=== PATIENT | male | born 1955 | race Caucasian/White ===

== ENCOUNTER 2021-03-24 08:12 | Outpatient (CLI) | payer MEDICARE, SELFPAY ==
--- NOTE | ~2021-03-24 | XR_ITS ---
EXAMINATION: XR barium swallow modified DATE: 03/24/2021 09:30 INDICATION: Dysphagia, unspecified TECHNIQUE: Modified barium esophagram was performed by myself to administered fluoroscopy, in conjun ction with speech pathologist who administered barium in varying consistencies as per speech patholog ist documentation. This was recorded on tape. A single fluoroscopic spot image was recorded. The DAP for this procedure was 1.973 Gycm2. Fluoroscopy exposure time was 2.0 minutes. FINDINGS: Oral stage: Adequate function. Pharyngeal phase: Adequate function. Laryngeal penetration: None. Aspiration: None. Laryngeal sensitivity: Present. IMPRESSION: Unremarkable modified barium swallow. Please refer to speech pathologist findings and spe [facility] feeding recommendations. Reviewed, dictated and finalized at location A. 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 Please refer to speech pathol ogist findings and specific feeding recommendations.
--- NOTE | 2021-03-24 16:13 | STOPEVAL ---
MODIFIED BARIUM SWALLOW EVALUATION: Thank you for referring Alexei Dejesus to [facility].? Attending Provider: STEFFANIE Saldana Modified Barium Swallow Evaluation Recent Swallowing History Reports Dysphagia Yes: meat gets stuck Onset of Dysphagia approximately 2 weeks History of Dysphagia No History of Pneumonia No Reported Difficult Consistencies Solids Intake Method Prior to Swallow Oral Evaluation Liquid Consistency Prior to Swallow Thin (0) Evaluation Consistency Solid Consistency Method of Presentation Spoon Oral Preparatory Symptoms None Oral Phase Symptoms None Pharyngeal Phase Symptoms None Severity of Vallecular Residue None - 0% No Residue Severity of Pyriform Sinus Residue None - 0% No Residue 8 Point Laryngeal Penetration-Aspiration Material Does Not Enter Airway Scale Cervical/Esophageal Symptoms None Mixed Consistency Method of Presentation Spoon Oral Preparatory Symptoms None Oral Phase Symptoms None Pharyngeal Phase Symptoms None Severity of Vallecular Residue None - 0% No Residue Severity of Pyriform Sinus Residue None - 0% No Residue 8 Point Laryngeal Penetration-Aspiration Material Does Not Enter Airway Scale Cervical/Esophageal Symptoms None Pureed Consistency Method of Presentation Spoon Oral Preparatory Symptoms None Oral Phase Symptoms None Pharyngeal Phase Symptoms None Severity of Vallecular Residue None - 0% No Residue Severity of Pyriform Sinus Residue None - 0% No Residue 8 Point Laryngeal Penetration-Aspiration Material Does Not Enter Airway Scale Cervical/Esophageal Symptoms None Thin Uncontrolled 2 Method of Presentation Straw Oral Preparatory Symptoms None Oral Phase Symptoms None Pharyngeal Phase Symptoms None Severity of Vallecular Residue None - 0% No Residue Severity of Pyriform Sinus Residue None - 0% No Residue 8 Point Laryngeal Penetration-Aspiration Material Does Not Enter Airway Scale Cervical/Esophageal Symptoms None Thin Uncontrolled 1 Method of Presentation Cup Oral Preparatory Symptoms None Oral Phase Symptoms None Pharyngeal Phase Symptoms None Severity of Vallecular Residue None - 0% No Residue Severity of Pyriform Sinus Residue None - 0% No Residue 8 Point Laryngeal Penetration-Aspiration Material Does Not Enter Airway Scale Cervical/Esophageal Symptoms None Thin 5 mL Method of Presentation Spoon Oral Preparatory Symptoms None Oral Phase Symptoms None Pharyngeal Phase Symptoms None Severity of Vallecular Residue None - 0% No Residue Severity of Pyriform Sinus Residue
== END 2021-03-24 08:13 | disposition home or self-care (01) ==
PROVIDERS: PCP Family Medicine; Visit Provider Nurse Practitioner Family
DX: R13.10 Dysphagia, unspecified (principal)
CPT/HCPCS: 92611

== ENCOUNTER 2022-11-13 15:25 | Outpatient (CLI) | payer MEDICARE, SELFPAY ==
--- NOTE | ~2022-11-13 | MR_ITS ---
EXAMINATION: MR abdomen wo/w con DATE: 11/13/2022 16:19 INDICATION: Liver disease, unspecified. TECHNIQUE: Magnetic resonance imaging (MRI) of the abdomen was performed without and with 19 mL Multi Willie intravenous contrast. COMPARISON: CT abdomen and pelvis 09/26/2018 FINDINGS: There is a pericardial cyst on the right measuring 2.8 x 1.6 cm. There are cysts in the liver measuri ng up to 2.7 cm. The spleen, pancreas, and adrenal glands are normal. The gallbladder is absent. Ther e are cysts in the kidneys measuring up to 11 mm on the left. There are no dilated loops of bowel. Th ere are no pathologically enlarged lymph nodes. There is no free intraperitoneal fluid. There is a 3. 0 cm fusiform aneurysm of infrarenal aorta. IMPRESSION: 1. Benign cysts in the liver. 2. 3.0 cm fusiform aneurysm of infrarenal aorta. Reviewed, dictated and finalized at location A.
== END 2022-11-13 15:26 | disposition home or self-care (01) ==
PROVIDERS: PCP Family Medicine; Visit Provider Physician Assistant Medical
DX: K76.9 Liver disease, unspecified (principal); K76.89 Other specified diseases of liver; I71.43 Infrarenal abdominal aortic aneurysm, without rupture
CPT/HCPCS: 74183; A9577

== ENCOUNTER 2022-12-11 09:17 | Outpatient (CLI) | payer MEDICARE, SELFPAY ==
--- NOTE | ~2022-12-11 | CT_ITS ---
CT Scan of the Chest without Contrast: Clinical Indication: Abnormal finding of lung field Technique: Contiguous sections were acquired throughout the chest without intravenous contrast. Dose reduction technique was used on this scan by utilizing automated exposure control and iterative recon struction technique. The dose-length product (DLP) was 387.99 mGy-cm. COMPARISON: 05/13/2010 Findings: There is no evidence of any significant mediastinal, hilar or axillary lymphadenopathy. Coronary robinson ry calcifications are present. There is no evidence of pleural or pericardial effusion. The lungs are clear. No pulmonary nodules or infiltrates are noted. Moderate emphysema noted. Images through the upper abdomen reveal hepatic cysts. Impression: Moderate emphysema. Reviewed, dictated and finalized at location . Impression: Moderate emphysema.
== END 2022-12-11 09:18 | disposition home or self-care (01) ==
PROVIDERS: Visit Provider Internal Medicine Pulmonary Disease
DX: R91.8 Other nonspecific abnormal finding of lung field (principal); J43.9 Emphysema, unspecified
CPT/HCPCS: 71250

== ENCOUNTER 2023-04-03 08:25 | Outpatient (CLI) | payer MEDICARE, SELFPAY ==
--- NOTE | 2023-04-03 11:00 | NEURO_ITS ---
Impression: # Complains of numbness of feet. History of cervical surgery over 10 years ago. # Sensory neuropathy. # Needle/EMG exam mildly neurogenic. # Clinical correlation recommended. Nerve Conduction Studies Anti Sensory Summary Table Stim Site NR Peak (ms) P-T Amp (?V) Site1 Site2 Delta-P (ms) Dist (cm) Irving (m/s) Left Saphenous Anti Sensory (Ant Med Mall) NO RESPONSE 14cm NR 14cm Ant Med Mall 0.0 Right Saphenous Anti Sensory (Ant Med Mall) NO RESPONSE 14cm NR 14cm Ant Med Mall 0.0 Left Sup Fibular Anti Sensory (Ant Lat Mall) NO RESPONSE 14 cm NR 14 cm Ant Lat Mall 16.0 Right Sup Fibular Anti Sensory (Ant Lat Mall) NO RESPONSE 14 cm NR 14 cm Ant Lat Mall 16.0 Left Sural Anti Sensory (Lat Mall) NO RESPONSE Calf NR Calf Lat Mall 16.0 Right Sural Anti Sensory (Lat Mall) NO RESPONSE Calf NR Calf Lat Mall 16.0 Motor Summary Table Stim Site NR Onset (ms) O-P Amp (mV) Site1 Site2 Delta-0 (ms) Dist (cm) Irving (m/s) Left Peroneal Motor (Vastus Med) Ankle 4.3 2.1 Popit Ankle 9.5 40.0 42 Popit 13.8 0.7 Right Peroneal Motor (Vastus Med) Ankle 4.6 2.0 Popit Ankle 7.4 37.0 50 Popit 12.0 2.2 Left Tibial Motor (Abd Xie Brev) Ankle 4.5 3.5 Knee Ankle 9.0 40.0 44 Knee 13.5 2.1 Right Tibial Motor (Abd Xie Brev) Ankle 4.9 6.2 Knee Ankle 9.5 40.0 42 Knee 14.4 5.8 F Wave Studies NR F-Lat (ms) L-R F-Lat (ms) Left Peroneal (Mrkrs) (EDB) 55.25 0.95 Right Peroneal (Mrkrs) (EDB) 54.30 0.95 Left Tibial (Mrkrs) (Abd Hallucis) 53.36 0.23 Right Tibial (Mrkrs) (Abd Hallucis) 53.59 0.23 EMG Side Muscle Nerve Root Ins Act Fibs Amp Dur Recrt Comment Right AntTibialis Dp Br Fibular L4-5 Nml Nml Nml >12ms Nml Right Gastroc Tibial S1-2 Nml Nml Nml >12ms Nml Right Fibularis Long Sup Br Fibular L5-S1 Nml Nml Nml >12ms Nml Right Flex Dig Long Tibial L5-S2 Nml Nml Nml >12ms Nml Right Ext Dig Brev Dp Br Fibular L5, S1 Nml Nml Nml >12ms Nml Left AntTibialis Dp Br Fibular L4-5 Nml Nml Nml >12ms Nml Left Gastroc Tibial S1-2 Nml Nml Nml >12ms Nml Left Fibularis Long Sup Br Fibular L5-S1 Nml Nml Nml >12ms Nml Left Flex Dig Long Tibial L5-S2 Nml Nml Nml >12ms Nml Left Ext Dig Brev Dp Br Fibular L5, S1 Nml Nml Nml >12ms Nml MTDD
== END 2023-04-03 08:26 | disposition home or self-care (01) ==
LOC: ANHNEURO 08:26
PROVIDERS: PCP Family Medicine; Visit Provider Family Medicine
DX: R20.0 Anesthesia of skin (principal)
CPT/HCPCS: 95886; 95911

== ENCOUNTER 2023-08-10 08:33 | Outpatient (CLI) | payer MEDICARE, SELFPAY ==
--- NOTE | 2023-08-21 15:16 | WPDSLEEPSTUD ---
Sleep Study Date of Study: 08/10/23 Ordering Provider: Blake OntiverosMD Interpreting Physician: Harleen Angeles, Sleep Study Type: CPAP Titration Height: 1.7 m Weight: 97.522 kg Body Mass Index: 33.6 Neck Circumference (inches): 18 [place]: 11 Reason for Sleep Study Compliance data shows AHI of 22.5 on BPAP 13/8 cm H2O. Sleep History The patient is a 67-year-old male with hypertension, COPD coronary artery disease with stents, complex sleep apnea, pulmonary nodules and history of tobacco use that had a sleep study ordered by his software publisher to determine optimal PAP settings. the patient denies awakening from sleep short of breath. He denies awakening at night with heartburn, belching or cough. He rarely snores loud enough that others complain. He denies having trouble sleeping when he has a cold. He denies waking up gasping for air throughout the night. He occasionally has breathing problems at night observed by himself or others. He denies sweating excessively at night. He denies having heart palpitations or irregular heartbeats during the night. He occasionally falls asleep during the day but never while driving. He denies sleep paralysis, cataplexy and hypnagogic / hypnopompic hallucinations. He denies having trouble at school or work due to sleepiness. He denies feeling afraid of going to sleep. He denies having nightmares. He frequently remembers his dreams. He occasionally has thoughts racing through his mind. He denies feeling sad or depressed. He rarely has anxiety. He denies having muscular tension. He rarely notices parts of his body jerk. He denies kicking during the night. He denies having crawling and aching feelings in his legs and denies having leg pain during the night. He rarely grinds his teeth during sleep but never awakens with morning jaw pain. He denies being bothered by pain during the day and denies being awakened by pain during the night. He occasionally wakes up feeling stiff in morning. He rarely wakes up with sore or achy muscles. He rarely wakes up with pain due to bone in the region weights. He goes to bed at 11:00 p.m. on both weekdays and weekends. It takes him 10 15 minutes to fall asleep. He wakes up 2-3 times throughout the night to urinate and get a drink and is able to fall back asleep within 15 minutes. He wakes up at 8:00 a.m. on both weekdays and weekends. He typically gets 9-10 hours of sleep per night. He will stay in bed for 30 minutes after waking up in the morning. He currently lives with his . He denies consuming any caffeinated beverages within 2 hours of bedtime. He denies engaging in physical exercise before bedtime. He will watch television before falling asleep. He will take naps in the afternoon or evening and they are refreshing. He consumes 2 caffeinated beverages per day. He quit smoking cigarettes 12 years ago. He denies alcohol and recreational drug use. [facility] Past Medical History Medical History BMI 32.0-32.9,adult BMI 34.0-34.9,adult BMI greater than 30 Surgical History Surgical History History of cholecystectomy Family History Family History Grandparent Carcinoma of colon Father Family history of coronary artery disease Family history of malignant neoplasm Family history of Alzheimer's disease Mother Family history of congestive heart failure Heart disease Sibling Heart disease Hypertension Other Family history of cardiovascular disease Social History Social History Smoking status: Former smoker Second hand tobacco smoke exposure: No Smoking end date: 08/14/13 Alcohol intake: current Substance use: never Substance use type: does not use Lack of
[2023-08-21 15:23] VITALS: BMI 33.6
== END 2023-08-11 06:55 | disposition home or self-care (01) ==
PROVIDERS: PCP Family Medicine; Visit Provider Internal Medicine Pulmonary Disease
DX: G47.37 Central sleep apnea in conditions classified elsewhere (principal); G47.33 Obstructive sleep apnea (adult) (pediatric); G47.61 Periodic limb movement disorder
CPT/HCPCS: 95811

== ENCOUNTER 2024-02-18 02:03 | Day surgery (SDC) | payer MEDICARE, SELFPAY ==
[2024-02-08 15:42] VITALS: BMI 33.7
--- NOTE | 2024-02-12 16:13 | PC.NURSE ---
Spoke with _patient_ regarding medication _PLAVIX_. Pt. verbalizes understanding that the last dose of _PLAVIX_ is to be taken on _02/10/2024___ and the Endoscopist will instruct them when to restart after the procedure.
[2024-02-18 06:15] VITALS: BP 94/65; PULSE 57; RESP 16; TEMP 36.1; O2SAT 94; BMI 32.7
[2024-02-18] MEDS: LACTATED RINGERS 1,000 ML 150 ML IV CONT (06:38)
--- NOTE | 2024-02-18 06:55 | P.PNAN_ITS ---
Anes - Initial Pre Proc Eval Procedure: Operation Date: 02/18/24 07:30 Proposed Procedures p Colonoscopy - Jose Dewitt MD Date/Time: 02/18/24 06:55 Surgeon: Jose Dewitt MD Pre Op Diagnosis: personal hx colon polyps Patient Data Age: 68 Gender: M Height: 1.7 m Weight: 94.8 kg Last Vital Signs Temp 36.1 C L 02/18/24 06:15 Pulse 57 L 02/18/24 06:15 Resp 16 02/18/24 06:15 BP 94/65 L 02/18/24 06:15 Pulse Ox 94 02/18/24 06:15 O2 Del Method Room Air 02/18/24 06:15 Allergies Allergy/AdvReac Type Severity Reaction Status Date / Time amlodipine Allergy Severe Anaphylaxis Verified 02/18/24 06:22 atorvastatin AdvReac Intermediate Muscle Verified 02/18/24 06:22 Spasms colesevelam AdvReac Intermediate Cramping Verified 02/18/24 06:22 of the Muscles RED MEAT/PORK Allergy Severe Anaphylaxis Uncoded 02/18/24 06:22 Home Medications Medication Instructions Recorded Confirmed Type aspirin 81 mg tablet,delayed 81 mg PO DAILY 03/17/19 02/18/24 History release (Adult Low Dose Aspirin) ferrous sulfate 325 mg (65 mg 325 mg PO TID #90 tabs 09/01/19 02/18/24 Rx iron) tablet clopidogrel 75 mg tablet (Plavix) 75 mg PO DAILY #1 tablet 07/07/21 02/18/24 Rx famotidine 20 mg tablet 20 mg PO BID 02/22/23 02/18/24 History hydrochlorothiazide 12.5 mg tablet 12.5 mg PO DAILY #90 tabs 10/08/23 02/18/24 Rx pantoprazole 20 mg tablet,delayed 20 mg PO QAM #90 tabs 11/26/23 02/18/24 Rx release (Protonix) De3 [place] 7,200 mg PO QPM 02/08/24 02/18/24 History atorvastatin 80 mg tablet 80 mg PO HS 02/08/24 02/18/24 History carvedilol 6.25 mg tablet 12.5 mg PO Q12H 02/08/24 02/18/24 History cetirizine 10 mg tablet 10 mg PO BID 02/08/24 02/18/24 History Patient hx anesthesia problems: none Family hx anesthesia problems: none Results Review: All pre-operative results and documents have been reviewed as part of the pre- operative evaluation. [facility] Past Medical History Medical History (Updated 02/18/24 @ 06:56 by Kj Lewis MD) BMI 32.0-32.9,adult BMI 33.0-33.9,adult BMI 34.0-34.9,adult BMI greater than 30 CAD (coronary artery disease) Ex-smoker MICHI on CPAP Surgical History Surgical History (Updated 02/18/24 @ 06:56 by Kj Lewis MD) H/O cervical spine surgery History of cholecystectomy History of coronary artery stent placement Family History Family History Grandparent Carcinoma of colon Father Family history of coronary artery disease Family history of malignant neoplasm Family history of Alzheimer's disease Mother Family history of congestive heart failure Heart disease Sibling Heart disease Hypertension Other Family history of cardiovascular disease Social History Social History Smoking packs per day: 1.5 Smoking cigarettes per day: 30.0 Years smoked: 43 Smoking pack-years: 64.50 Smoking status: Former smoker Tobacco type: cigarettes Second hand tobacco smoke exposure: No Smoking end date: 08/14/13 Alcohol intake: current Drinks per week: 3 Alcohol use details: BEERS Substance use: never Substance use type: does not use Lack of Transportation: No Lack of Food: Never True Current Housing: I Have Housing Concerned About Future Housing: No Difficulty Paying Gas/Electric Bills: No Difficulty Paying for Meds: No Currently Unemployed: No Education: High School Diploma/GED Difficulty w/ Childcare or Family Care: No Living arrangements: with family Occupation/Education: retired 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 Gender identity (if verbalized by the patient): Male Sexual Orientation (if Verbalized by the Patient): Straight or Heterosexual Spiritual care concerns: No Anes - Eval Final PreProcedure Day of Procedure 02/18/24 06:55 Patient weight: obese Heart: regular rate and rhythm Lungs: clear to auscultation Airway: Mallampati scale class II Neurological: alert and oriented Last oral intake: >/= 8 hours ASA classification: III Emergent: no Anesthetic plan: proceed Anesthesia type and monitoring: general GIVS and standard monitoring Results Review: All pre-operative results and documents have been reviewed as part of the pre- operative evaluation. Informed Consent: The patient's anesthetic plan and its attendant risks and benefits were discussed with the patient/family/POA. Questions were solicited and answers provided to the satisfaction of the patient/family/POA.
--- NOTE | 2024-02-18 07:34 | P.HP_ITS ---
H&P: HPI History of Present Illness Date/Time: 02/18/24 07:34 Chief Complaint: History of colonic polyps. Narrative: The patient has a history of colonic polyps, the last colonoscopy was In 2018. [facility] Past Medical History Medical History (Updated 02/18/24 @ 06:56 by Kj Lewis MD) BMI 32.0-32.9,adult BMI 33.0-33.9,adult BMI 34.0-34.9,adult BMI greater than 30 CAD (coronary artery disease) Ex-smoker MICHI on CPAP Surgical History Surgical History (Updated 02/18/24 @ 06:56 by Kj Lewis MD) H/O cervical spine surgery History of cholecystectomy History of coronary artery stent placement Family History Family History Grandparent Carcinoma of colon Father Family history of coronary artery disease Family history of malignant neoplasm Family history of Alzheimer's disease Mother Family history of congestive heart failure Heart disease Sibling Heart disease Hypertension Other Family history of cardiovascular disease Social History Social History Smoking packs per day: 1.5 Smoking cigarettes per day: 30.0 Years smoked: 43 Smoking pack-years: 64.50 Smoking status: Former smoker Tobacco type: cigarettes Second hand tobacco smoke exposure: No Smoking end date: 08/14/13 Alcohol intake: current Drinks per week: 3 Alcohol use details: BEERS Substance use: never Substance use type: does not use Lack of Transportation: No Lack of Food: Never True Current Housing: I Have Housing Concerned About Future Housing: No Difficulty Paying Gas/Electric Bills: No Difficulty Paying for Meds: No Currently Unemployed: No Education: High School Diploma/GED Difficulty w/ Childcare or Family Care: No Living arrangements: with family Occupation/Education: retired 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 Gender identity (if verbalized by the patient): Male Sexual Orientation (if Verbalized by the Patient): Straight or Heterosexual Spiritual care concerns: No Meds Home Medications and Allergies Home Medications Medication Instructions Recorded Confirmed Type aspirin 81 mg tablet,delayed 81 mg PO DAILY 03/17/19 02/18/24 History release (Adult Low Dose Aspirin) ferrous sulfate 325 mg (65 mg 325 mg PO TID #90 tabs 09/01/19 02/18/24 Rx iron) tablet clopidogrel 75 mg tablet (Plavix) 75 mg PO DAILY #1 tablet 07/07/21 02/18/24 Rx famotidine 20 mg tablet 20 mg PO BID 02/22/23 02/18/24 History hydrochlorothiazide 12.5 mg tablet 12.5 mg PO DAILY #90 tabs 10/08/23 02/18/24 Rx pantoprazole 20 mg tablet,delayed 20 mg PO QAM #90 tabs 11/26/23 02/18/24 Rx release (Protonix) De3 [place] 7,200 mg PO QPM 02/08/24 02/18/24 History atorvastatin 80 mg tablet 80 mg PO HS 02/08/24 02/18/24 History carvedilol 6.25 mg tablet 12.5 mg PO Q12H 02/08/24 02/18/24 History cetirizine 10 mg tablet 10 mg PO BID 02/08/24 02/18/24 History Allergies Allergy/AdvReac Type Severity Reaction Status Date / Time amlodipine Allergy Severe Anaphylaxis Verified 02/18/24 06:22 atorvastatin AdvReac Intermediate Muscle Verified 02/18/24 06:22 Spasms colesevelam AdvReac Intermediate Cramping Verified 02/18/24 06:22 of the Muscles RED MEAT/PORK Allergy Severe Anaphylaxis Uncoded 02/18/24 06:22 Vital Signs Vital Signs - 24 hr 02/18/24 06:15 Temperature 97.0 F L Pulse Rate 57 L Respiratory Rate 16 Blood Pressure 94/65 L Pulse Oximetry 94 Oxygen Delivery Room Air Assessment and Plan Assessment and plan (1) Screen for colon cancer: Code(s): Z12.11 - Encounter for screening for malignant neoplasm of colon Status: Acute Assessment and Plan: The patient is deemed a good candidate for the procedure. Consent signed. Will proceed.
[2024-02-18 08:01] VITALS: BP 104/63; PULSE 48; RESP 12; O2SAT 93
[2024-02-18 08:11] VITALS: BP 109/60; PULSE 61; RESP 20; O2SAT 93
[2024-02-18 08:21] VITALS: BP 102/62; PULSE 54; RESP 16; O2SAT 95
== END 2024-02-18 08:32 | disposition home or self-care (01) ==
PROVIDERS: PCP Family Medicine; Referring Provider Nurse Practitioner Family; Visit Provider Internal Medicine Gastroenterology
PROC: 0DJD8ZZ Inspection of Lower Intestinal Tract, Via Natural or Artificial Opening Endoscopic (ICD-10-PCS; CPT 45378; principal; 2024-02-18 07:30)
DX: Z12.11 Encounter for screening for malignant neoplasm of colon (principal); K64.8 Other hemorrhoids; K57.30 Diverticulosis of large intestine without perforation or abscess without bleeding; I25.10 Atherosclerotic heart disease of native coronary artery without angina pectoris; G47.33 Obstructive sleep apnea (adult) (pediatric); E66.9 Obesity, unspecified; Z68.32 Body mass index [BMI] 32.0-32.9, adult; Z79.82 Long term (current) use of aspirin; Z79.02 Long term (current) use of antithrombotics/antiplatelets; Z99.89 Dependence on other enabling machines and devices; Z98.890 Other specified postprocedural states; Z90.49 Acquired absence of other specified parts of digestive tract; Z98.1 Arthrodesis status; Z95.5 Presence of coronary angioplasty implant and graft; Z87.891 Personal history of nicotine dependence; Z86.0100 Personal history of colon polyps, unspecified; Z86.79 Personal history of other diseases of the circulatory system; Z80.0 Family history of malignant neoplasm of digestive organs; Z82.49 Family history of ischemic heart disease and other diseases of the circulatory system
CPT/HCPCS: G0105; J2003; J2704; J7120

== ENCOUNTER 2024-09-25 09:33 | Outpatient (CLI) | payer MEDICARE, SELFPAY ==
--- OUTSIDE RECORDS SUMMARY | 2024-09-25 10:35 | XMS_ITS | Encounter Summary ---
Author Organization [facility] Address [address] [place] [address] Care Team Providers Care Sports Teacher Name Role Phone Shaun Myers MD Primary Care Provider + [phone] Shaun Myers MD Primary Care Provider + [phone] Shaun Myers MD Primary Care Provider + [phone] Hugh Mosquera MD Unavailable [phone] Encounter Details Date Type Department Care Team (Late st Contact Info) Description 05/08/2016 Orders Only [facility] ProviderDar MD [address] [place] [id number] Social History Tobacco Use Types Packs/Day Years Used Date Smoking Tobacco: Former Alcohol Use Standard Drinks/Week Comments Yes 0 (1 standard drink = 0.6 oz pur e alcohol) Sex and Gender Information Value Date Recorded Sex Assigned at Not on file Legal Sex Male 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 Historical Provider [facility] Final Result documented in this encounter Visit Diagnoses Not on filedocumented in this encounter Care Teams Sports Teacher Relationship Specialty Start Date End Date Shaun Myers MD PCP - General 07/14/16 Shaun Myers MD PCP - General 05/16/16 07/13/16 Shaun Myers MD PCP - General 11/05/15 05/15/16 Hugh Mosquera MD [address] [place] [address] Consulting Physician Rheumatology 01/19/23 documented as of this encounter
--- OUTSIDE RECORDS SUMMARY | 2024-09-25 10:35 | XMS_ITS | Encounter Summary ---
Author Organization [facility] Address [address] [place] [address] Care Team Providers Care Lead Shop Operator Name Role Phone Shaun Myers MD Primary Care Provider + [phone] Shaun Myers MD Primary Care Provider + [phone] Shaun Myers MD Primary Care Provider + [phone] Hugh Mosquera MD Unavailable [phone] Encounter Details Date Type Department Care Team (Late st Contact Info) Description 05/15/2016 Orders Only [facility] ProviderDar MD [address] [place] [id number] Social History Tobacco Use Types Packs/Day Years Used Date Smoking Tobacco: Former Alcohol Use Standard Drinks/Week Comments Yes 0 (1 standard drink = 0.6 oz pur e alcohol) Sex and Gender Information Value Date Recorded Sex Assigned at Not on file 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 Historical Provider [facility] Final Result documented in this encounter Visit Diagnoses Not on filedocumented in this encounter Care Teams Lead Shop Operator Relationship Specialty Start Date End Date Shaun Myers MD PCP - General 07/14/16 Shaun Myers MD PCP - General 05/16/16 07/13/16 Shaun Myers MD PCP - General 11/05/15 05/15/16 Hugh Mosquera MD [address] [place] [address] Consulting Physician Rheumatology 01/19/23 documented as of this encounter
--- OUTSIDE RECORDS SUMMARY | 2024-09-25 10:35 | XMS_ITS | Clinical Summary ---
Author Organization [facility] Address [address] [address] Care Team Providers Care Wick Tender Name Role Phone Shaun Myers MD Primary Care Provider [phone] Source Comments [facility],non-owned Affiliates and Associated Physician Practices is amultiple site organization consisting of ambulatory clinics and hospital sitesin [place], [place], [place] and [place]. This disclosure is being madepursuant to the Care Everywhere program and may not contain all information available regarding this patient. Last updated 18.[facility] Social History Tobacco Use Types Packs/Day Years Used Date Smoking Tobacco: Never Assessed Sex and Gender Information Value Date Recorded Sex Assigned at Not on file Legal Sex Male 6:48 PM CDT Gender Identity Not on file Sexual Orientation Not on file Plan of Treatment Health Maintenance Due Date Last Done Comments COLOGUARD (AGES 45-75) - COL ON CA SCREENING 1954 COLON MONITORING 1954 COLONOSCOPY - COLON CA SCREENING 1954 CT COLONOGRAPHY - COLON CA SCREENING 1954 Colorectal Cancer Screening 1954 FIT - COLON CA SCREENING 1954 FLEX SIG - COLON CA SCREENING 1954 LIPID TESTING 1954 MEDICARE AWV 12 MONTHS 1954 HEPATITIS C SCREENING 12/11/1972 DTAP/TDAP/TD VACCINES (1 - Tdap) 1973 PNEUMOCOCCAL VACCINE 50+ (1 of 1 - PCV) 2004 ZOSTER VACCINE (1 of 2) 2004 COVID-19 VACCINE ( - 2023-2 5 season) 2023 DEPRESSION SCREENING 04/16/2024 INFLUENZA VACCINE (Season Ended) 2024 Respiratory Syncytial Virus (RSV) Vaccine Pt: or over 60 yrs (1 - 1-dose 75+ series) 2029 HEPATITIS B VACCINE Aged Out No longe r eligible based on patient's age to complete this topic HIB VACCINE Aged Out No longer eligi ble based on patient's age to complete this topic HPV VACCINE Aged Out No longer eligi ble based on patient's age to complete this topic MENINGOCOCCAL (Group B) VACC INE SHARED DECISION-MAKING Aged Out No longer eligibl e based on patient's age to complete this topic MENINGOCOCCAL GROUPS A/C/Y/W VACCINE Aged Out No longer eligible b ased on patient's age to complete this topic Insurance [facility] Address: [facility] [address] [place] [address] MEDICARE AET Care Teams Wick Tender Relationship Specialty Start Date End Date Shaun Myers MD [address] [place] [address] PCP - General 06/24/18
--- OUTSIDE RECORDS SUMMARY | 2024-09-25 10:35 | XMS_ITS | Clinical Summary ---
Author Organization [facility] Address [address], [address] [address] Phone Care Team Providers Care Shelter Case Manager Name Role Phone Shaun Myers MD Primary Care Provider [phone] Social History Tobacco Use Types Packs/Day Years Used Date Smoking Tobacco: Never Assessed Sex and Gender Information Value Date Recorded Sex Assigned at Not on file Legal Sex Male 1:07 PM BUDGET SPECIALIST Gender Identity Not on file Sexual Orientation Not on file Plan of Treatment Health Maintenance Due Date Last Done Comments Hepatitis C Virus (HCV) Screening 1955 TdaP Immunization 1954 Cologuard 2004 Immunochemical Fecal Occult Blood 2004 Pneumococcal Immunization (5 0+ years) (1 of 1 - PCV) 2004 Zoster Immunization (1 of 2) 2004 PSA Discussion 2009 Colonoscopy 06/12/2023 06/12/2018 Colorectal Cancer Screening 06/12/2023 Influenza Immunization (#1) 2023 SARS-COV-2 Immunization ( season) 2023 Respiratory Syncytial Virus (RSV) Immunization (Adult) (1 - 1-dose 75+ series) 2029 Hepatitis B Immunization Aged Out No longer eligible based on patient's age to complete this topic Meningococcal Immunization (ACWY) Aged Out No longer eligible based on patient's age to complete this topic Rotavirus Immunization Aged Out No lo nger eligible based on patient's age to complete this topic Procedures Procedure Name Priority Date/Time Associated Diagnosis Comments COLONOSCOPY Routine 06/12/2018 from Last 3 Months or Most Recently Relevant to Health Maintenance Results * COLONOSCOPY (06/12/2018) Jaylon Niranjan Sara DO PROCEDURE/MINOR SURGICAL ORDERA BLES Final Result from Last 3 Months or Most Recently Relevant to Health Maintenance [place] [address] [place] [address] Care Teams Shelter Case Manager Relationship Specialty Start Date End Date Shaun Myers MD [address] [place] [address] PCP - General Family Medicine 06/15/18
--- OUTSIDE RECORDS SUMMARY | 2024-09-25 10:35 | XMS_ITS | Referral Summary ---
Author Organization [facility] [address] [place] [address] [address] [place] [address] Care Team Providers Care Barker Peeler Name Role Phone Shaun Myers MD Primary Care Provider [phone] Hugh Mosquera MD Unavailable [phone] Encounters Date Type Department Care Team Description 09/19/2024 12:05 PM CDT Lab [facility] [address] [address] Angioedema, initial encounter; Allergy to alpha-gal 09/19/2024 11:20 AM CDT Office Visit [facility] [address] [place] [address] [address] [place] [address] Samy Bailey MD PhD 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 Dx); Angioedema, initial encounter 08/19/2024 Telephone [facility] [address] [facility] [address] [place] [address] Jony Lloyd MD from Last 3 Months Allergies Active Allergy Reactions Criticality Noted Date Comments Rosuvastatin Muscle pain Medium 03/09/2020 Valsartan Angioedema High 01/22/2023 Presenting with worsening angioedema, still taking valsartan Medications aspirin 81 mg chewable tablet chew 1 tablet by oral route every day 0 0 5 Active ferrous sulfate 325 mg (65 mg of elemental iron) tabletIndicatio ns:Iron Deficiency Anemia Take 5 tablets (1,625 mg total) by mouth 3 (three) times a day with meals Active sildenafiL (VIAGRA) 100 mg tabletIndicatio ns:Erectile dysfunction due to diseases classified elsewhere Take 1 tablet (100 mg total) by mouth daily as needed for erectile dysfunction 10 tablet 11 0 Active Additional Information Patient not taking.Reported on 09/19/2024 valsartan (DIOVAN) 160 mg tablet Take 1 tablet (160 mg total) by mouth daily 3 Active hydroCHLOROthia zide (HYDRODIURIL) 12.5 mg tablet Take 1 tablet (12.5 mg total) by mouth daily 4 Active carvediloL (COREG) 6.25 mg tablet TAKE 2 TABLETS BY MOUTH TWICE A DAY WITH MEALS 360 tablet 1 4 Active omega-3 fatty acids-fish oil 300-1,000 mg capsule Take 3 capsules (3 g total) by mouth daily Active montelukast (SINGULAIR) 10 mg tabletIndicatio ns:Allergy to alpha-gal Take 1 tablet (10 mg total) by mouth nightly 90 tablet [address] (PROTONIX) 20 mg EC tablet Take 1 tablet (20 mg total) by mouth daily Active clopidogreL (PLAVIX) 75 mg tablet TAKE 1 TABLET BY MOUTH EVERY DAY 90 tablet 2 5 Active cetirizine (ZyrTEC) 10 mg tabletIndicatio ns:Allergy to alpha-gal,Angio edema, initial encounter Take 1 tablet (10 mg total) by mouth 2 (two) times a day 180 tablet 2 5 025 Active atorvastatin (LIPITOR) 80 mg tabletIndicatio ns:Coronary artery disease involving nuiqsut coronary artery of nuiqsut heart without angina pectoris Take 1 tablet (80 mg total) by mouth daily 90 tablet 5 Active EPINEPHrine 0.3 mg/0.3 mL auto-injection syringeIndicati ons:Anaphylaxis Inject 0.3 mL (0.3 mg total) into the muscle as instructed as needed for anaphylaxis Call 911 after use. 2 each 1 5 026 Active famotidine (PEPCID) 20 mg tabletIndicatio ns:Angioedema, initial encounter,Aller gy to alpha-gal Take 1 tablet (20 mg total) by mouth 2 (two) times a day 180 tablet 3 5 Active EPINEPHrine 0.3 mg/0.3 mL auto-injection syringeIndicati ons:Anaphylaxis Inject 0.3 mL (0.3 mg total) into the muscle as instructed as needed for anaphylaxis Call 911 after use. 2 each 1 3 025 Discontin ued(Reord er) famotidine (PEPCID) 20 mg tabletIndicatio ns:Allergy to alpha-gal Take 1 tablet (20 mg total) by mouth 2 (two) times a day 180 tablet 3 4 025 Discontin ued(Reord er) Active Problems Problem Noted Date Diagnosed Date Angioedema, initial encounter 01/21/2023 Other chest pain 02/27/2022 MICHI on CPAP 09/07/2020 PHAM (dyspnea on exertion) 03/29/2019 Essential hypertension 05/02/2017 Assessment & Plan (05/02/2017 6:08 PM DESIGNER): Hypertension is not at goal since losartan discontinued a few months ago. Will resume Gastroesophageal reflux disease without esophagi tis 05/02/2017 Coronary artery disease invo lving nuiqsut coronary artery of nuiqsut heart without angina pectoris 05/02/2017 Overview (05/02/2017): 01/2015: ACS, then anterior STEMI, RICKEY to the mid LAD and thrombectomy of the adjacent coronary aneurysm Long-term DA PT recommended because of the miss fit between the stent in the stenotic LAD segment and the adjacent coronary aneurysmal dilatation Cough 05/02/2017 Assessment & Plan (05/02/2017 6:10 PM DESIGNER): Chronic irritating cough, not secondary to losartan. Has history of GERD and I wonder if this is the etiology of the cough Increase Prilosec Multiple-type hyperlipidemia 03/29/2015 Overview (07/21/2016): Mixed hyperlipidemia Assessment & Plan (05/02/2017 6:08 PM DESIGNER): POC lipids today: Total cholesterol 161, HDL 48, TG 173, LDL 79, glucose 111. Good but could be a little better, will increase atorvastatin. Statin intolerance 03/29/2015 Overview (05/02/2017): Statin intolerance Myalgias on Crestor Assessment & Plan (05/02/2017 6:09 PM DESIGNER): Myalgias with Crestor, doing well on low-dose atorvastatin 20 mg daily. Will try increasing it. Aneurysm of coronary vessels 03/29/2015 Overview (07/21/2016): Coronary artery aneurysm ED (erectile dysfunction) 03/29/2015 Overview (07/21/2016): ED (erectile dysfunction) of organic origin Assessment & Plan (05/02/2017 6:09 PM DESIGNER): Would like to try higher dose Viagra. Old anterior wall myocardial infarction 03/29/20 15 Overview (07/21/2016): Old anterior myocardial infarction Resolved Problems Problem Noted Date Diagnosed Date Resolved Date Allergy to statin medication 03/29/2019 03/29/2019 Immunizations Immunization Administration Dates Next Due Influenza, Quadrivalent, Hig h Dose, Preservative Free, Intrr 02/04/2020 Influenza, Quadrivalent, Split, Intramuscular Influenza, Quadrivalent, Spl it, Preservative Free, Intramuscular 02/13/2019,01/30/2015 Pneumococcal Conjugate PCV 13 02/04/2020 Social History Tobacco Use Types Packs/Day Years Used Date Smoking Tobacco: Former Passive Smoke Exposure: Never Smokeless Tobacco: Never Tobacco Cessation:Counseling Given: Not Answered Alcohol Use Standard Drinks/Week Comments Yes 0 (1 standard drink = 0.6 oz pur e alcohol) AUDIT-C Answer Date Recorded Q1: How often do you have a drink containing alc ohol? 2-4 times a month 01/25/2024 Q2: How many drinks containi ng alcohol do you have on a typical day when you are drinking? 5 or 6 01/25/2024 Q3: How often do you have si x or more drinks on one occasion? Never 01/25/2024 Personal Safety Answer Date Recorded Have you ever been in or are you currently in a harmful physical or emotional relationship or is someone making you feel afraid or unsafe? Denies 01/21/2023 Sex and Gender Information Value Date Recorded Sex Assigned at Not on file Legal Sex Male 4:25 PM DESIGNER Gender Identity Not on file Sexual Orientation Not on file Last Filed Vital Signs Vital Sign Reading Time Taken Comments Blood Pressure 134/80 09/19/2024 11:20 AM CDT Pulse 50 09/19/2024 11:20 AM CDT Temperature 36.3 C (97.4 F) 09/19/2024 11:20 AM CDT Respiratory Rate 16 01/25/2024 3:45 PM CDT Oxygen Saturation 97% 09/19/2024 11:20 AM CDT Inhaled Oxygen Concentration - - Weight 96.9 kg (213 lb 9.6 oz) 09/19/2024 11:20 AM CDT Height 170.2 cm (5' 7) 09/19/2024 11:20 AM CDT Body Mass Index 33.45 09/19/2024 11:20 AM CDT Plan of Treatment Not on file Procedures Procedure Name Priority Date/Time Associated Diagnosis Comments EGFR Routine 09/19/2024 12:13 PM CDT Angioedema, initial encounter Allergy to alpha-gal DIFFERENTIAL AUTO Routine 09/19/2024 12: 13 PM CDT Angioedema, initial encounter Allergy to alpha-gal GLUCOSE, RANDOM (OUTREACH) Routine 09/19/2024 12:13 PM CDT Angioedema, initial encounter Allergy to alpha-gal COMPREHENSIVE METABOLIC PANEL WITHOUT GLUCOSE (OUTREACH) Routine 09/19/2024 12:13 PM CDT Angioedema, initial encounter Allergy to alpha-gal ALLERGEN ALPHA-GAL (FOOD) IGE Routine 09/19/2024 12:13 PM CDT Angioedema, initial encounter Allergy to alpha-gal C1 ESTERASE INHIBITOR ANTIGEN Routine 09/19/2024 12:13 PM CDT Angioedema, initial encounter Allergy to alpha-gal CALE SCREEN W/REFLEX KATHERINE+DSDNA Routine 09/19/2024 12:13 PM CDT Angioedema, initial encounter Allergy to alpha-gal C1 ESTERASE INHIBITOR, FUNCTIONAL Routine 09/19/2024 12:13 PM CDT Angioedema, initial encounter Allergy to alpha-gal C4 COMPLEMENT Routine 09/19/2024 12:13 PM CDT Angioedema, initial encounter Allergy to alpha-gal CBC WITH AUTO DIFFERENTIAL Routine 09/19/2024 12:13 PM CDT Angioedema, initial encounter Allergy to alpha-gal COMPREHENSIVE METABOLIC PANEL (OUTREACH) Routine 09/19/2024 12:13 PM CDT Angioedema, initial encounter Allergy to alpha-gal from Last 3 Months Results * CALE screen w/rflx KATHERINE+dsDNA (09/19/2024 12:13 PM CDT) CALE Negative Comment: Interpretive Data Normal range for CALE Qualitative Antibody = Negative. 1. CALE is performed using indirect immunofluorescence against HEp-2 cells 2. CALE titers are performed on all positive qualitative results. 3. A significantly positive CALE result is defined as a positive nuclear fluorescence at a titer of 1:80 or greater. 4. 15% of normal people above age 65 have significantly positive CALE results. 5% or less of normal people age 65 or under have significantly positive CALE results. Current interpretive data was last revised on 2019. Blood 09/19/2024 12:1 3 PM CDT 09/19/2024 2:14 PM CDT us Samy Bailey MD PhD LAB BLOOD ORDERABLES Final Resul t [facility] Department [place] [address] * (ABNORMAL) Allergen Alpha-gal (food) IgE (09/19/2024 12:13 PM CDT) Alpha-gal IgE 1.08(H) 0.00 - 0.34 kUnits/L Blood 09/19/2024 12:1 3 PM CDT 09/19/2024 2:14 PM CDT us Samy Bailey MD PhD LAB BLOOD ORDERABLES Final Resul t Performing Organization Address [facility] de Phone Number [facility] Department [place] [address] * Glucose, random (Outreach) (09/19/2024 12:13 PM CDT) Glucose 97 70 - 199 mg/dL Comment: Interpretive Data Fasting glucose >/= 126 mg/dl is diagnostic for diabetes. Fasting is defined as no caloric intake for at least 8 hours. Fasting glucose between 100 mg/dl to 125 mg/dl is diagnostic of prediabetes. In a patient with classic symptoms of hyperglycemia or hyperglycemic crisis, a random glucose >/= 200 mg/dl is diagnostic for diabetes. In the absence of unequivocal hyperglycemia, results should be confirmed by repeat testing. The classification and Diagnosis of Diabetes Diabetes Care 2021; 46: S19-S40. Current interpretive data was last revised 2022. Blood 09/19/2024 12:1 3 PM CDT 09/19/2024 2:14 PM CDT us Samy Bailey MD PhD LAB BLOOD ORDERABLES Final Resul t Performing Organization Address [facility] de Phone Number [facility] Department [place] [address] * eGFR (09/19/2024 12:13 PM CDT) eGFR 89 >=60 mL/min/1. 73 m2 Comment: Interpretive Data Reference Interval Normal >/= 90 mL/min/1.73m2 Mildly decreased* 60 - 89 mL/min/1.73m2 Mildly to moderately decreased 45 - 59 mL/min/1.73m2 Moderately to severely decreased 30 - 44 mL/min/1.73m2 Severely decreased 15 - 29 mL/min/1.73m2 Kidney Failure < 15 mL/min/1.73m2 *Relative to young adult level Estimated glomerular filtration rate is determined by the 2020 CKD-EPI equation recommended by the National Kidney Foundation (A Unifying Approach to GFR Estimation: Recommendations of the NKF-ASK Task Force on Reassessing the Inclusion of Race in Diagnosing Kidney Disease, JASN 2020). The CKD-EPI equation should not be used for patients with unstable renal function and has not been validated in children and those over 70. Current interpretive data was last reviewed 2021. Blood 09/19/2024 12:1 3 PM CDT 09/19/2024 2:28 PM CDT Samy Bailey MD PhD LAB BLOOD ORDERABLES Final Resul t Performing Organization Address [facility] de Phone Number [facility] [place] [address] * C1 Esterase inhibitor antigen (09/19/2024 12:13 PM CDT) [facility] C1 Esterase inhibitor 33 19 - 37 mg/dL [place] [facility] Comment: Test Performed by: [id number] [place] [address] Commercial Insurance Underwriter: Jacob Arias Ph.D.; CLIA# [id number] Blood 09/19/2024 12:1 3 PM CDT 09/19/2024 2:09 PM CDT Samy Bailey MD PhD LAB BLOOD ORDERABLES Final Resul t Performing Organization Address City/[facility] de Phone Number [facility] Department [place] [address] [place] [facility] * Differential, auto (09/19/2024 12:13 PM CDT) Pathologist [facility] Neutrophil abs 3.65 1.50 - 6.50 K/cumm Imm gran abs 0.02 0.00 - 0.10 K/cumm [facility] Lymphocyte abs 1.55 0.80 - 3.30 K/cumm [facility] Monocyte abs 0.61 0.20 - 0.80 K/cumm [facility] Eosinophil abs 0.41 0.00 - 0.50 K/cumm [facility] Basophil abs 0.07 0.00 - 0.10 K/cumm [facility] Neutrophil pct 57.8 % [facility] Comment: Interpretive Data Percent cell count reference ranges are not reported, since discordance with absolute values may lead to misinterpretation of CBC data. Current Interpretive Data was last revised on 2017. Imm gran pct 0.3 % [facility] Comment: Interpretive Data Percent cell count reference ranges are not reported, since discordance with absolute values may lead to misinterpretation of CBC data. Current Interpretive Data was last revised on 2017. Lymphocyte pct 24.6 % [facility] Comment: Interpretive Data Percent cell count reference ranges are not reported, since discordance with absolute values may lead to misinterpretation of CBC data. Current Interpretive Data was last revised on 2017. Monocyte pct 9.7 % [facility] Comment: Interpretive Data Percent cell count reference ranges are not reported, since discordance with absolute values may lead to misinterpretation of CBC data. Current Interpretive Data was last revised on 2017. Eosinophil pct 6.5 % [facility] Comment: Interpretive Data Percent cell count reference ranges are not reported, since discordance with absolute values may lead to misinterpretation of CBC data. Current Interpretive Data was last revised on 2017. Basophil pct 1.1 % [facility] Comment: Interpretive Data Percent cell count reference ranges are not reported, since discordance with absolute values may lead to misinterpretation of CBC data. Current Interpretive Data was last revised on 2017. Blood 09/19/2024 12:1 3 PM CDT 09/19/2024 2:14 PM CDT us Samy Bailey MD PhD LAB BLOOD ORDERABLES Final Resul t [facility] Department [place] [address] * C4 complement (09/19/2024 12:13 PM CDT) Complement C4 35.5 10.0 - 40.0 mg/dL Blood 09/19/2024 12:1 3 PM CDT 09/19/2024 2:14 PM CDT Samy Bailey MD PhD LAB BLOOD ORDERABLES Final Resul t Performing Organization Address [facility]/ZIP Co de Phone Number [facility] Department [place] [address] * (ABNORMAL) Comprehensive metabolic panel, without glucose (Outreach) (09/19/2024 12:13 PM CDT) [facility] Sodium 142 135 - 145 mmol/L Potassium, pl 3.6 3.3 - 4.9 mmol/L [facility] Chloride 104 97 - 110 mmol/L [facility] CO2 28 22 - 32 mmol/L [facility] Anion gap 10 2 - 15 mmol/L [facility] BUN 24 6 - 25 mg/dL [facility] Creatinine 0.93 0.80 - 1.30 mg/dL [facility] Calcium 10.1 8.5 - 10.3 mg/dL [facility] Protein, pl 7.9 6.5 - 8.5 g/dL [facility] Albumin 4.3 3.5 - 5.0 g/dL [facility] Bilirubin, total 1.6(H) 0.1 - 1.2 mg/dL [facility] Alk phos 122 40 - 130 Units/L [facility] AST 25 10 - 50 Units/L [facility] ALT 30 7 - 55 Units/L [facility] Blood 09/19/2024 12:1 3 PM CDT 09/19/2024 2:14 PM CDT us Samy Bailey MD PhD LAB BLOOD ORDERABLES Final Resul t Performing Organization Address City/[facility]/ZIP Co de Phone Number [facility] Department [place] [address] * (ABNORMAL) CBC with auto differential (09/19/2024 12:13 PM CDT) [facility] WBC 6.31 3.80 - 9.90 K/cumm Hgb 16.1 13.0 - 17.5 g/dL [facility] Hct 43.1 38.9 - 50.3 % [facility] Plt 256 150 - 400 K/cumm [facility] MPV 10.1 9.1 - 12.3 fL [facility] RBC 4.68 4.30 - 5.80 M/cumm [facility] MCV 92.1 81.3 - 96.4 fL [facility] MCH 34.4(H) 27.1 - 33.3 pg [facility] MCHC 37.4(H) 32.3 - 35.7 g/dL [facility] RDW CV 12.9 11.1 - 14.9 % [facility] RDW SD 43.0 35.7 - 48.1 fL [facility] NRBC abs 0.00 0.00 - 0.01 K/cumm [facility] Blood 09/19/2024 12:1 3 PM CDT 09/19/2024 2:14 PM CDT us Samy Bailey MD PhD LAB BLOOD ORDERABLES Final Resul t [facility] [place] [address] * C1 esterase inhibitor, functional (09/19/2024 12:13 PM CDT) [facility] C1 Esterase inhibitor >90 % [facility] Lab Comment: REFERENCE VALUE Normal: >67% Equivocal: 41-67% Abnormal: <41% Test Performed by: [facility] [address] [place] [id number] Commercial Insurance Underwriter: Jacob Arias Ph.D.; CLIA# [id number] Blood 09/19/2024 12:1 3 PM CDT 09/19/2024 2:09 PM CDT us Samy Bailey MD PhD LAB BLOOD ORDERABLES Final Resul t [facility] [place] [address] [place] ref Lab from Last 3 Months Insurance MEDICARE AET SENIOR [facility] MEDICARE [place] PREFERRED MEDICARE AETNA [facility] SUPPLEMENT MEDICARE AETNA SENIOR SUPPLEMENT Care Teams Barker Peeler Relationship Specialty Start Date End Date Shaun Myers MD PCP - General 07/14/16 Hugh Mosquera MD [address] [place] [address] Consulting Physician Rheumatology 01/19/23
--- OUTSIDE RECORDS SUMMARY | 2024-09-25 10:35 | XMS_ITS | Encounter Summary ---
Author Organization [facility] Address [address] [place] [address] Care Team Providers Care Office Analyst Name Role Phone Shaun Myers MD Primary Care Provider [phone] Encounter Details Date Type Department Care Team (Late st Contact Info) Description 12/28/2022 Lab Requisition [facility] Lab [address] [place] [id number] Oneil Ramos MD [address] [place] [address] Social History Tobacco Use Types Packs/Day Years [...] Procedure Name Priority Date/Time Associated Diagnosis Comments DERMATOPATHOLOGY Routine 12/28/2022 12:0 0 AM CDT documented in this encounter Results * DERMATOPATHOLOGY (12/28/2022 12:00 AM CDT) Case Report Dermatopathology Report Case: [id number] Authorizing Provider: Oneil Ramos MD Collected: 12/28/2022 12:00 AM Ordering Location: [facility] DermPath Lab Received: 12/29/2022 07:28 AM Pathologist: Karen Olivier MD Specimen: Skin, ant neck 3:52 PM CDT DERMATOPATHOLOGY LABORATORY Final Diagnosis Specimen A. SKIN, ant neck: SEBORRHEIC KERATOSIS, IRRITATED (L82.0) (see microscopic description) 3:52 PM CDT DERMATOPATHOLOGY LABORATORY at 1552 CDT Clinical History SK vs irr. Tag Path#[id number] 3 3:52 PM CDT DERMATOPATHOLOGY LABORATORY Gross Description Specimen A: Received is one formalin filled container labeled with the patient's name and designated ant neck. The specimen consists of a shave biopsy measuring 5x4x4 mm. Jar 0. 3 3:52 PM CDT DERMATOPATHOLOGY LABORATORY Microscopic Description Specimen A. SKIN, ant neck: There is acanthosis consisting of fairly uniform squamous cells with eosinophilic cytoplasm and squamous eddies. Mib-1 stain highlights proliferating keratinocytes confined to the lower epidermis. 3 3:52 PM CDT DERMATOPATHOLOGY LABORATORY Disclaimer An external and internal positive and negative controls are appropriate for the histochemical, immunohistochemical and immunofluorescence stain(s) in this case (if any), except where stated explicitly. The performance characteristics of the stain(s) cited in this report were developed and its performance characteristic determined by the Dermatopathology Laboratory at [facility], directed by Dr. Keisha Grover. These tests need not be, and therefore are not, approved by the [place] Food and Drug Administration. The tests are used for clinical purposes. Billing Codes Specimen Charges Stain Charges 13172 1 56895 1 3 3:52 PM CDT DERMATOPATHOLOGY LABORATORY Embedded Images 3 3:52 PM CDT DERMATOPATHOLOGY LABORATORY Pathology/Cytolog y TISSUE SPECIMEN FROM SKIN / Unknown 12/28/2022 12/29/2022 7:28 AM CDT us Oneil Ramos MD LAB - PATHOLOGY/CYTOLOGY ORDER BELLO Final Result DERMATOPATHOLOGY LABORATORY [facility] - Department of Dermatology [facility] Medicine [address] [place] [address], [address] [phone] documented in this encounter Visit Diagnoses Not on filedocumented in this encounter Care Teams Office Analyst Relationship Specialty Start Date End Date Shaun Myers MD [address] [place] [address] PCP - General 06/24/18 documented as of this encounter
--- OUTSIDE RECORDS SUMMARY | 2024-09-25 10:35 | XMS_ITS | Clinical Summary ---
Author Organization [facility] [address] Address [address] [place] [address] Care Team Providers Care Line Tender Name Role Phone Shaun Myers MD Primary Care Provider [phone] Hugh Mosquera MD Unavailable [phone] Allergies Active Allergy Reactions Criticality Noted Date [...] 80 mg tabletIndicatio ns:Coronary artery disease involving [place] coronary artery of [place] heart without angina pectoris Take 1 tablet [...] 05/02/2017 Assessment & Plan (05/02/2017 6:08 PM [employer] SAL[employer]ERSON): Hypertension is not at goal since losartan discontinued a few months ago. Will resume Gastroesophageal reflux disease without esophagi tis 05/02/2017 Coronary artery disease invo lving [place] coronary artery of [place] heart without angina pectoris 05/02/2017 Overview (05/02/2017): 01/2015: ACS, then anterior STEMI, RICKEY to the mid LAD and thrombectomy of the adjacent coronary aneurysm Long-term DA PT recommended because of the miss fit between the stent in the stenotic LAD segment and the adjacent coronary aneurysmal dilatation Cough 05/02/2017 Assessment & Plan (05/02/2017 6:10 PM [employer] SAL[employer]ERSON): Chronic irritating cough, not secondary to losartan. Has history of GERD and I wonder if this is the etiology of the cough Increase Prilosec Multiple-type hyperlipidemia 03/29/2015 Overview (07/21/2016): Mixed hyperlipidemia Assessment & Plan (05/02/2017 6:08 PM [employer] SAL[employer]ERSON): POC lipids today: Total cholesterol 161, HDL 48, TG 173, LDL 79, glucose 111. Good but could be a little better, will increase atorvastatin. Statin intolerance 03/29/2015 Overview (05/02/2017): Statin intolerance Myalgias on Crestor Assessment & Plan (05/02/2017 6:09 PM [employer] SAL[employer]ERSON): Myalgias with Crestor, doing well on low-dose atorvastatin 20 mg daily. Will try increasing it. Aneurysm of coronary vessels 03/29/2015 Overview (07/21/2016): Coronary artery aneurysm ED (erectile dysfunction) 03/29/2015 Overview (07/21/2016): ED (erectile dysfunction) of organic origin Assessment & Plan (05/02/2017 6:09 PM [employer] SAL[employer]ERSON): Would like to try higher dose Viagra. Old anterior wall myocardial infarction 03/29/20 15 Overview (07/21/2016): Old anterior myocardial infarction Resolved Problems Problem Noted Date Diagnosed Date Resolved Date Allergy to statin medication 03/29/2019 03/29/2019 Encounters Date Type Department Care Team Description 09/19/2024 12:05 PM CDT Lab [facility] [address] [place] [address] [place] [address] Angioedema, initial encounter; Allergy to alpha-gal 09/19/2024 11:20 AM CDT Office Visit [facility] Allergy and Immunology [address] [place] [address] [address] [place] [address] Samy Bailey MD PhD 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 Dx); Angioedema, initial encounter 08/19/2024 Telephone [facility] [address] [place] [address] Jony Lloyd MD from Last 3 Months Immunizations Immunization Administration Dates Next Due Influenza, Quadrivalent, Hig h Dose, Preservative Free, Intrr 02/04/2020 Influenza, Quadrivalent, Split, Intramuscular Influenza, Quadrivalent, Spl it, Preservative Free, Intramuscular 02/13/2019,01/30/2015 Pneumococcal Conjugate PCV 13 02/04/2020 Surgical History Surgery Date Site/Laterality Comments GALLBLADDER SURGERY NECK SURGERY 04/16/2009 - 04/15/2010 Medical History Medical History Date Comments Hx Other Medical C-spine surgery ; Comments: ELU 02/27/2015 - Gastroesophageal reflux disease GERD Hx Other Medical MICHI/CPAP; Comme nts: ELU 02/27/2015 - Hx Other Medical Pulm. nodule; C omments: ELU 02/27/2015 - CAD (coronary artery disease) Family History Medical History Relation Name Comments Other Father Myocardial infa rction, later CABG; polycystic kidney dz.; Other Mother Pacemaker, arrh ythmia ablation; Relation Name Status Comments Father Mother Social History Tobacco Use Types Packs/Day Years [...] on file Legal Sex Male 4:25 PM [employer] SAL[employer] Gender Identity Not on file Sexual Orientation Not on file Obstetrics History Last Filed Vital Signs Vital Sign Reading [...] 09/19/2024 11:20 AM CDT Plan of Treatment Health Maintenance Due Date Last Done Comments Colon Cancer Screening-Colonoscopy 1954 Depression Screening 1954 Fall Risk Assessment 1954 Hepatitis C Screening 1954 Prostate Cancer Screening-PSA 1954 DTaP/Tdap/Td Vaccine (1 - Tdap) 1965 Hepatitis B Screening 1972 Zoster Vaccine (1 of 2) 2004 Well Visit 65+ 12/17/2019 Pneumococcal vaccine 65+ (2 of 2 - PPSV23) 02/03/2021 02/04/2020 Influenza Vaccine (Season Ended) 2024 02/04/2020, 02/13/2019, 02/13/2019, Additional history exists Abdominal Aortic Aneurysm (A AA) Screen Completed 10/06/2022 Procedures Procedure Name Priority Date/Time Associated Diagnosis [...] ORDERABLES Final Resul t Performing Organization Address [facility] de Phone Number [facility] [place] [address] * (ABNORMAL) Allergen Alpha-gal (food) IgE (09/19/2024 12:13 PM CDT) Pathologist [facility] Alpha-gal IgE 1.08(H) 0.00 - 0.34 kUnits/L Blood 09/19/2024 12:1 3 PM CDT 09/19/2024 2:14 PM CDT Samy Bailey MD PhD LAB BLOOD ORDERABLES Final Resul t Performing Organization Address [facility] Phone Number [facility] [place] [address] * Glucose, random (Outreach) (09/19/2024 12:13 PM CDT) Pathologist [facility] Glucose 97 70 - 199 mg/dL Comment: [...] classification and Diagnosis of Diabetes Diabetes Care 202; 46: S19-S40. Current interpretive data was last revised 2022. Blood 09/19/2024 12:1 3 PM CDT 09/19/2024 2:14 PM CDT us Samy Bailey MD PhD LAB BLOOD ORDERABLES Final Resul t Performing Organization Address [facility] de Phone Number [facility] [place] [address] * eGFR (09/19/2024 12:13 PM CDT) eGFR [...] 3 PM CDT 09/19/2024 2:28 PM CDT us Samy Bailey MD PhD LAB BLOOD ORDERABLES Final Resul t Performing Organization Address City/[facility]/ZIP Co de Phone Number [facility] [place] [address] * C1 Esterase inhibitor antigen (09/19/2024 12:13 PM CDT) C1 Esterase inhibitor 33 19 - 37 mg/dL [place] [facility] Comment: Test Performed by: [facility] [address] [id number] [place] Supervisor: Jacob Arias Ph.D.; CLIA# [id number] Blood 09/19/2024 12:1 3 PM CDT 09/19/2024 2:09 PM CDT us Samy Bailey MD PhD LAB BLOOD ORDERABLES Final Resul t [facility] [place] [address] [place] [facility] * Differential, auto (09/19/2024 12:13 PM CDT) Pathologist [facility] Neutrophil abs 3.65 1.50 - 6.50 K/cumm Imm gran abs 0.02 0.00 - 0.10 K/cumm [facility] Lymphocyte abs 1.55 0.80 - 3.30 K/cumm [facility] Monocyte abs 0.61 0.20 - 0.80 K/cumm [facility] Eosinophil abs 0.41 0.00 - 0.50 K/cumm [facility] Basophil abs 0.07 0.00 - 0.10 K/cumm [facility] Neutrophil pct 57.8 % [facility] Comment: Interpretive Data Percent cell count reference ranges are not reported, since discordance with absolute values may lead to misinterpretation of CBC data. Current Interpretive Data was last revised on 2017. Imm gran pct 0.3 % [facility] Comment: Interpretive Data Percent cell count reference ranges are not reported, since discordance with absolute values may lead to misinterpretation of CBC data. Current Interpretive Data was last revised on 2017. Lymphocyte pct 24.6 % [facility] Comment: Interpretive Data Percent cell count reference ranges are not reported, since discordance with absolute values may lead to misinterpretation of CBC data. Current Interpretive Data was last revised on 2017. Monocyte pct 9.7 % [facility] Comment: Interpretive Data Percent cell count reference ranges are not reported, since discordance with absolute values may lead to misinterpretation of CBC data. Current Interpretive Data was last revised on 2017. Eosinophil pct 6.5 % [facility] Comment: Interpretive Data Percent cell count reference ranges are not reported, since discordance with absolute values may lead to misinterpretation of CBC data. Current Interpretive Data was last revised on 2017. Basophil pct 1.1 % [facility] Comment: Interpretive Data Percent cell count reference ranges are not reported, since discordance with absolute values may lead to misinterpretation of CBC data. Current Interpretive Data was last revised on 2017. Blood 09/19/2024 12:1 3 PM CDT 09/19/2024 2:14 PM CDT Samy Bailey MD PhD LAB BLOOD ORDERABLES Final Resul t Performing Organization Address City/[facility] Co de Phone Number [facility] [place] [address] * C4 complement (09/19/2024 12:13 PM CDT) Pathologist [facility] Complement C4 35.5 10.0 - 40.0 mg/dL Blood 09/19/2024 12:1 3 PM CDT 09/19/2024 2:14 PM CDT Samy Bailey MD PhD LAB BLOOD ORDERABLES Final Resul t Performing Organization Address City/[facility]/ZIP Co de Phone Number [facility] [place] [address] * (ABNORMAL) Comprehensive metabolic panel, without glucose (Outreach) (09/19/2024 12:13 PM CDT) Pathologist [facility] Sodium 142 135 - 145 mmol/L Potassium, pl 3.6 3.3 - 4.9 mmol/L [facility] Chloride 104 97 - 110 mmol/L [facility] CO2 28 22 - 32 mmol/L [facility] Anion gap 10 2 - 15 mmol/L [facility] BUN 24 6 - 25 mg/dL [facility] Creatinine 0.93 0.80 - 1.30 mg/dL [facility] Calcium 10.1 8.5 - 10.3 mg/dL [facility] Protein, pl 7.9 6.5 - 8.5 g/dL [facility] Albumin 4.3 3.5 - 5.0 g/dL [facility] Bilirubin, total 1.6(H) 0.1 - 1.2 mg/dL [facility] Alk phos 122 40 - 130 Units/L [facility] AST 25 10 - 50 Units/L [facility] ALT 30 7 - 55 Units/L [facility] Blood 09/19/2024 12:1 3 PM CDT 09/19/2024 2:14 PM CDT us Samy Bailey MD PhD LAB BLOOD ORDERABLES Final Resul t [facility] Department [place] [address] * (ABNORMAL) CBC with auto differential (09/19/2024 12:13 PM CDT) Pathologist [facility] WBC 6.31 3.80 - 9.90 K/cumm Hgb 16.1 13.0 - 17.5 g/dL [facility] Hct 43.1 38.9 - 50.3 % [facility] Plt 256 150 - 400 K/cumm [facility] MPV 10.1 9.1 - 12.3 fL [facility] RBC 4.68 4.30 - 5.80 M/cumm [facility] MCV 92.1 81.3 - 96.4 fL [facility] MCH 34.4(H) 27.1 - 33.3 pg [facility] MCHC 37.4(H) 32.3 - 35.7 g/dL [facility] RDW CV 12.9 11.1 - 14.9 % [facility] RDW SD 43.0 35.7 - 48.1 fL [facility] NRBC abs 0.00 0.00 - 0.01 K/cumm [facility] Blood 09/19/2024 12:1 3 PM CDT 09/19/2024 2:14 PM CDT Samy Bailey MD PhD LAB BLOOD ORDERABLES Final Resul t Performing Organization Address [facility] de Phone Number [facility] [place] [address] * C1 esterase inhibitor, functional (09/19/2024 12:13 PM CDT) Pathologist [facility] C1 Esterase inhibitor >90 % [place] [facility] Comment: REFERENCE VALUE Normal: >67% Equivocal: 41-67% Abnormal: <41% Test Performed by: [place] [address] [place] Supervisor: Jacob Arias Ph.D.; CLIA# [id number] Blood 09/19/2024 12:1 3 PM CDT 09/19/2024 2:09 PM CDT Samy Bailey MD PhD LAB BLOOD ORDERABLES Final Resul t Performing Organization Address [facility] de Phone Number [facility] [place] [address] [place] [facility] from Last 3 Months Insurance MEDICARE AET[employer] SENIOR SUPPLEMENT MEDICARE [place] PREFERRED MEDICARE [employer]ET[employer] SENIOR SUPPLEMENT MEDICARE [employer] SENIOR SUPPLEMENT Care Teams Line Tender Relationship Specialty Start Date End Date Shaun Myers MD PCP - General 07/14/16 Hugh Mosquera MD [address] [place] [address] Consulting Physician Rheumatology 01/19/23
[2024-10-22 09:40] VITALS: BMI 32.8
--- NOTE | 2024-10-22 09:40 | WPDSLEEPSTUD ---
Sleep Study Date of Study: 09/25/24 Ordering Provider: Alexei Wise, Interpreting Physician: Harleen Angeles, Sleep Study Type: BiPAP Titration Height: 1.7 m Weight: 95.254 kg Body Mass Index: 32.8 Neck Circumference (inches): 18 [place]: 12 Reason for Sleep Study Previously diagnosed MICHI and unable to tolerate CPAP. Sleep History The patient is a 68-year-old male who had a sleep study ordered by his primary care physician to determine optimal pressure settings of CPAP. The patient rarely awakens from sleep short of breath. He denies awakening at night with heartburn, belching, or cough. He occasionally snores, and it is occasionally loud enough that others complain. He occasionally has trouble sleeping when he has a cold. He rarely wakes up gasping for air throughout the night. He occasionally has breathing problems at night observed by himself or others. He denies sweating excessively at night. He denies having heart palpitations or irregular heartbeats during the night. He occasionally falls asleep during the day but never while driving. He denies sleep paralysis and cataplexy. He denies having trouble at school or work due to sleepiness. He rarely experiences vivid dreamlike scenes upon awakening or falling asleep. He denies feeling afraid of falling asleep. He denies having nightmares. He frequently remembers his dreams. He occasionally has thoughts racing through his mind. He denies feeling sad or depressed. He rarely has anxiety. He rarely has muscular tension. He rarely notices parts of his body jerk. He denies kicking during the night. He rarely has crawly and aching feelings in his legs but occasionally has leg pain during the night. He frequently grinds his teeth during sleep but never awakens with morning jaw pain. He is rarely bothered by pain during the night and rarely awakened by pain during the day. He is occasionally awakened feeling stiff in the morning. He occasionally wakes up with sore or achy muscles. He occasionally wakes up with pain in the spine, neck, or joints. He goes to bed at 10 p.m. every day. It takes him 15 minutes to fall asleep. He wakes up twice throughout the night to urinate and is able to fall back asleep within 5 to 10 minutes. He wakes up at 8 a.m. every day. He gets 10 hours of sleep per night. He will stay in bed for 10 minutes after waking up in the morning. He currently lives with his . He denies consuming any caffeinated beverages within two hours of bedtime. He denies engaging in physical exercise before bedtime. He will watch television before falling asleep. He will take naps in the afternoon or the evening twice per week, and they are refreshing. He consumes 1 to 2 caffeinated beverages per day. He quit smoking cigarettes 13 years ago. He consumes alcoholic beverages 2 to 3 times per week. He denies recreational drug use. FORMERLY [facility], [facility] Past Medical History Medical History Ex-smoker CAD (coronary artery disease) BMI greater than 30 BMI 32.0-32.9,adult BMI 33.0-33.9,adult BMI 34.0-34.9,adult MICHI on CPAP Surgical History Surgical History H/O cervical spine surgery History of coronary artery stent placement History of cholecystectomy Family History Family History Grandparent Carcinoma of colon Father Family history of coronary artery disease Family history of malignant neoplasm Family history of Alzheimer's disease Mother Family history of congestive heart failure Heart disease Sibling Heart disease Hypertension Other Family history of cardiovascular disease Social History Social History Smoking packs per day: 1.5 Smoking cigarettes per day: 30.0 Years smoked: 43 Smoking pack-years: 64.50 Smoking status: Former smoker Tobacco type: cigarettes Second hand tobacco smoke exposure: No Smoking end date: 08/14/13 Alcohol intake: current Drinks per week: 3 Alcohol use details: BEERS Substance use: never Substance use type: does not use Lack of Transportation: No Lack of Food: Never True Current Housing: I Have Housing Concerned About Future Housing: No Difficulty Paying Gas/Electric Bills: No Difficulty Paying for Meds: No Currently Unemployed: No Education: High School Diploma/GED Difficulty w/ Childcare or Family Care: No Living arrangements: with family Occupation/Education: retired 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 Gender identity (if verbalized by the patient): Male Sexual Orientation (if Verbalized by the Patient): Straight or Heterosexual Spiritual care concerns: No Medications Home Medications ?Medication ?Instructions ?Recorded ?Confirmed ?Type aspirin 81 mg tablet,delayed 81 mg PO DAILY 03/17/19 02/18/24 History release (Adult Low Dose Aspirin) ferrous sulfate 325 mg (65 mg 325 mg PO TID #90 tabs 09/01/19 02/18/24 Rx iron) tablet clopidogrel 75 mg tablet (Plavix) 75 mg PO DAILY #1 tablet 07/07/21 02/18/24 Rx De3 [place] 7,200 mg PO QPM 02/08/24 02/18/24 History atorvastatin 80 mg tablet 80 mg PO HS 02/08/24 02/18/24 History carvedilol 6.25 mg tablet 12.5 mg PO Q12H 02/08/24 02/18/24 History cetirizine 10 mg tablet 10 mg PO BID 02/08/24 02/18/24 History hydrochlorothiazide 12.5 mg tablet See Rx Instructions .Route 06/19/24 Rx .COMPLEX #90 tabs pantoprazole 20 mg tablet,delayed 20 mg PO QAM #90 tabs 09/17/24 Rx release (Protonix) Sleep Procedure A full night BPAP Titration using the Lumenergi multi-channel system recorded the standard physiologic parameters including EEG, EOG, submentalis EMG, anterior tibialis EMG, EKG, body position, nasal and oral airflow using nasal pressure sensor and thermistor.? Respiratory parameters of chest and abdominal movements were recorded with Respiratory Inductance Plethysmography belts. Oxygen saturation was recorded by pulse oximetry. Video monitoring was also performed. Sleep stages, periodic limb movements, and EEG arousals were scored in 30 second epochs according to the criteria of the AASM Scoring Manual. The Apnea-Hypopnea Index was calculated using CMS guidelines for definition of hypopnea with 4% O2 desaturations while scoring respiratory events. Sleep Architecture The total recording time was 465.6 minutes.? The total sleep time was 394.5 minutes. Sleep latency was 17.0 minutes. REM latency was 148.5 minutes. Sleep efficiency was 84.7%. The patient had 40 awakenings for an awakening index of 6.1. Wake after Sleep Onset time was 54.5 minutes. The patient spent 65.0 minutes, 16.5% of total sleep time in Stage N1. The patient spent 306.0 minutes, 77.6% in Stage N2. The patient spent 1.0 minutes, 0.3% in Stage N3. The patient spent 22.5 minutes, 5.7% in Stage REM. Respiratory Analysis The patient had 64 hypopneas, 15 obstructive apneas, 2 mixed apneas, and 13 central apneas for an overall Apnea Hypopnea Index of 14.3 events per hour. The REM Apnea Hypopnea Index was 16.0. The NREM Apnea Hypopnea Index was 14.2. The patient had a Central Apnea Hypopnea Index of 2.0. There was no evidence of Pablo-Bright Respirations. The patient was started on BPAP 8/4 cm H2O and titrated to BPAP 20/12 cm H2O. The patient was able to fall asleep starting on BPAP 8/4 cm H2O. The patient was able to achieve REM sleep starting on BPAP 12/6 cm H2O. On BPAP 18/10 cm H2O, the patient spent 75 minutes in NREM and 7.5 minutes in REM with 8 central apneas and 3 hypopneas, resulting in an AHI of 8.0. On BPAP 18/12 cm H2O, the patient spent 29 minutes in NREM and 0 minutes in REM with 1 central apnea and 3 hypopneas, resulting in an AHI of 8.3. The EPAP was increased to 12 cm H2O due to the patient developing central apneas once he moved into the supine position. The patient had a sleep efficiency of 79.3% on BPAP 18/10 cm H2O and 100% on 18/12 cm H2O. Arousals There were 207 total arousals for an arousal index of 31.5. There were 151 spontaneous arousals for an index of 23.0. ?There were 33 arousals due to respiratory events for an index of 5.0. There were 15 arousals due to periodic limb movements for an index of 2.3.? There were 9 arousals due to isolated limb movements for an index of 1.4. Periodic Limb Movements The patient had 33 isolated limb movements with an index of 5.0. The patient had 44 periodic limb movements with index of 6.7. Patient had a total of 77 limb movements with a total limb movement index of 11.7. Oximetry Data The patient had an average oxygen saturation of 91.4% in sleep with a minimum oxygen saturation of 82.0% and a maximum oxygen saturation of 97.0%. The patient had 84 oxygen desaturations that were 4% or greater resulting in an Oxygen Desaturation Index of 12.8.? The patient spent 9.2 minutes, 2% of total sleep time with an oxygen saturation below 88%. Snoring Profile Mild snoring was present intermittently throughout the study. The snoring never fully resolved. Cardiac Profile The EKG showed normal sinus rhythm with frequent PVCs. The patient had an average pulse rate of 57.4 bpm with a minimum pulse rate of 48.0 bpm and a maximum pulse rate of 68.0 bpm. ? EEG Profile No signs of seizure activity seen. Assessment and Plan Assessment and Plan (1) Obstructive sleep apnea: Code(s): G47.33 - Obstructive sleep apnea (adult) (pediatric) Status: Acute Assessment and Plan: The patient was started on BPAP 8/4 cm H2O and titrated to BPAP 20/12 cm H2O. While we were unable to find a pressure setting that resolved the patient's sleep apnea entirely, we were able to find a pressure setting that lowered his residual AHI to 8.0. I recommend that the patient be prescribed BPAP 18/12 cm H2O, size large Resmed AirFit F20 full face mask, BPAP filters/tubing and heated humidity. This should be used with all episodes of sleep.? Compliance should be reviewed within 31-90 days of starting therapy for usage greater than 4 hours per night greater than 70% of the nights. The patient should be asked about symptoms such as?excessive daytime sleepiness, quality of sleep, decreased nocturia, increased?mental functioning such as memory, mood, and concentration. Data The data obtained during this sleep study is adequate for interpretation. Certification This sleep study has been reviewed by a board certified sleep medicine physician.
== END 2024-09-26 06:35 | disposition home or self-care (01) ==
LOC: ANHCSM 09:49
PROVIDERS: PCP Family Medicine; Visit Provider Internal Medicine Pulmonary Disease
DX: G47.33 Obstructive sleep apnea (adult) (pediatric) (principal)
CPT/HCPCS: 95811

== ENCOUNTER 2024-12-19 09:25 | Outpatient (CLI) | payer MEDICARE, SELFPAY ==
--- NOTE | ~2024-12-19 | US_ITS ---
Examination: US abdomen complete Clinical History: R17 - Unspecified jaundice . Comparison: None Technique: Complete abdominal sonography Findings: Liver: Normal size. Normal echotexture. No intrahepatic biliary ductal dilatation. Normal hepatopedal flow main portal vein. 2 cm simple cyst. Common duct: Normal caliber, 4 mm. Gallbladder: Removed. Spleen: Prominent. Pancreas: Unremarkable. Kidneys: Unremarkable. Aorta: Distal ectasia 2.8 cm. Retrohepatic IVC: Unremarkable. IMPRESSION: 1. No acute findings. Reviewed, dictated and finalized at location R. IMPRESSION: 1. No acute findings.
== END 2024-12-19 09:26 | disposition home or self-care (01) ==
LOC: MICIMG 09:27
PROVIDERS: PCP Family Medicine; Visit Provider Nurse Practitioner Family
DX: K76.89 Other specified diseases of liver (principal); I71.43 Infrarenal abdominal aortic aneurysm, without rupture; N28.1 Cyst of kidney, acquired
CPT/HCPCS: 76700